=== PATIENT | male | born 1995 | race Caucasian/White ===

== ENCOUNTER → 2021-12-04 | Outpatient (CLI) | payer OTHER ==
[~2021-12-04] MED LIST: LODINE CAP 300300 MG PO; ZOFRAN ODT 4 MG4 MG SL
== END ==
LOC: RAD 15:09
DX: M79.641 Pain in right hand (principal)
CPT/HCPCS: 73130

== ENCOUNTER 2022-03-14 19:55 | Emergency (ER) | payer OTHER ==
[2022-03-14 20:53] LABS: HEMOGLOBIN 16.4 gm/dl (14.0-17.5); RED BLOOD COUNT 5.97 M/UL (4.20-5.50)
[2022-03-14 21:08] LABS: BUN/CREATININE RATIO 10 (0-10)
[2022-03-14] MEDS ORDERED: PERCOCET 5/325 T1 EA PO (22:58)
[2022-03-14] MEDS ORDERED: CLINDAMYCIN HC300 MG PO (22:58)
== END 2022-03-14 23:20 | disposition home or self-care (01) ==
LOC: ER1 19:55
PROVIDERS: Physician Assistant Medical
DX: K04.7 Periapical abscess without sinus (principal); I10 Essential (primary) hypertension
CPT/HCPCS: 64400; 70487; 80053; 85025; 96374; 96375; 99284; J1885; Q9967